=== PATIENT | male | born 1980 | race Caucasian/White ===

== ENCOUNTER → 2016-12-29 | Outpatient (CLI) | payer BC, OTHER ==
--- NOTE | 2016-12-29 11:54 | REP ---
Clinical: Acute/chronic cough. Technique: PA and lateral. Comparison: None. Findings: Mediastinum and cardiac silhouette are grossly within normal limits. Bronchitis cannot be excluded. No focal consolidation, effusion, or pneumothorax. Skeletal structures are intact. Impression: Coarsened markings are nonspecific but cannot exclude bronchitis. No focal consolidation. Signed by Saud Gutiérrez MD 12/29/2016 11:45 A
== END ==
LOC: M WUC 11:29
PROVIDERS: ATTEND Physician Assistant
DX: R05 Cough (principal)

== ENCOUNTER 2020-02-13 09:55 | Emergency (ER) | payer BC, OTHER ==
[~2020-02-13] VITALS: Ht 180.3 cm; Wt 119.0 kg
[2020-02-13] MEDS ORDERED: LEVO2TA (10:31)
[2020-02-13] MEDS ORDERED: MELO15TA28 (10:31)
[2020-02-13 11:06] LABS: BASO % 0.6 % (0.0-1.0); EOS # 0.1 10^3/uL (0.0-0.5); EOS % 1.8 % (0.0-3.0); HEMOGLOBIN 14.1 g/dl (13.5-17.5); LYMPH # 1.6 10^3/uL (1.5-5.0); MEAN CORPUSCULAR HEMOGLOBIN 26.7 pg (27.0-33.0); MEAN CORPUSCULAR VOLUME 83.3 fl (80.0-96.0); MONO # 0.4 10^3/uL (0.0-0.8); MONO % 6.3 % (0.0-5.0); NEUTROPHILS # 4.4 10^3/uL (1.5-8.5); NEUTROPHILS % 66.7 % (36.0-66.0); PLATELET COUNT, AUTOMATED 245 10^3/uL (150-450); RED BLOOD COUNT 5.28 10^6/uL (4.30-6.10); WHITE BLOOD COUNT 6.6 10^3/uL (4.0-10.0)
--- NOTE | 2020-02-13 11:13 | REP ---
INDICATION: CHEST PAIN COMPARISON: 12/29/2016 TECHNIQUE: Portable AP view of the chest FINDINGS: The mediastinum and cardiac silhouette are stable and within normal limits for portable technique. The lung perkins are clear without acute consolidation, effusion, or pneumothorax. Skeletal structures are intact. IMPRESSION: No acute cardiopulmonary process appreciated. <Electronically signed by Saud Gutiérrez > 02/13/20 [id number]
[2020-02-13] MEDS ORDERED: ISOVUE-370 76% 100ML VIAL As Ordered ONE (12:17)
--- NOTE | 2020-02-13 12:51 | REP ---
INDICATION: r/o PE. COMPARISON: None. TECHNIQUE: Contrast dose: 75 ML of Isovue [address] technique: Helical scanning is acquired and overlapping 1.5 mm and contiguous 3 mm axial images are reformatted. In addition, maximum intensity projection and multiplanar re-formation images are generated in sagittal and coronal imaging projections. FINDINGS: There is good opacification in the pulmonary arterial tree. There is no evidence of vessel cut off or filling defect to suggest pulmonary embolus. Homogeneous opacity is seen in the thoracic aorta. There is no evidence of aneurysm or dissection. Lung window settings demonstrate 2 there are 2 or 3 scattered granulomatous calcifications. There is a 3 mm pleural based nodule in the left lower lobe in the lateral pleural angle which is not calcified. No other significant pulmonary nodule is seen. No hilar or mediastinal mass or adenopathy is observed. In the upper abdomen, there is diffuse fatty infiltration of the liver. Normal adrenal glands are seen. The visualized upper abdominal structures are otherwise unremarkable. IMPRESSION: No CT evidence of pulmonary embolus. Noncalcified 3 mm pleural based pulmonary nodule in the left lower lobe with scattered granulomatous calcifications. If the patient is considered at high risk for pulmonary malignancy, follow-up chest CT in 1 year could be considered. <Electronically signed by Chip Reeves > 02/13/20 [id number]
[2020-02-13 15:00] VITALS: BP 143/91
--- NOTE | 2020-02-14 06:34 | ECGEPIP ---
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
--- NOTE | 2020-02-14 06:45 | ECGEPIP ---
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
--- NOTE | 2020-02-14 07:35 | ED PDOC ---
Post-Departure Follow-Up radiology report faxed Diego Howe Sarah MD Feb 14, 2020 07:35
== END 2020-02-13 15:18 | disposition home or self-care (01) ==
LOC: M ED 09:55
DX: R07.89 Other chest pain (principal); E07.9 Disorder of thyroid, unspecified; Z79.890 Hormone replacement therapy
CPT/HCPCS: 36415; 71045; 71275; 80047; 84484; 85025; 93005; 93041; 94760; 99285; Q9967

== ENCOUNTER → 2022-02-01 | Outpatient (REF) | payer BC, OTHER ==
[~2022-02-01] MED LIST: LEVO2TA; MELO15TA28
== END ==
LOC: M WUC 18:45
PROVIDERS: ATTEND Student in an Organized Health Care Education/Training Program
DX: J06.9 Acute upper respiratory infection, unspecified (principal)

== ENCOUNTER 2024-04-19 18:56 | Emergency (ER) | payer OTHER, BC ==
[~2024-04-19] VITALS: Ht 180.3 cm; Wt 125.2 kg
[2024-04-19 22:25] LABS: HEMATOCRIT 44.6 % (42.0-52.0); HEMOGLOBIN 14.7 g/dl (13.5-17.5); MEAN CORPUSCULAR HEMOGLOBIN 27.5 pg (27.0-33.0); MEAN CORPUSCULAR VOLUME 83.5 fl (80.0-96.0); PLATELET COUNT, AUTOMATED 296 10^3/uL (150-450); RED BLOOD COUNT 5.34 10^6/uL (4.30-6.10); WHITE BLOOD COUNT 10.5 10^3/uL (4.0-10.0)
[2024-04-19 22:48] LABS: ETHYL ALCOHOL (ETHANOL) < 0.003 % (0.000-0.010)
[2024-04-19 22:49] LABS: ALBUMIN 3.8 G/DL (3.2-5.2); ALKALINE PHOSPHATASE 86 U/L (40-129); ALT/SGPT 118 U/L (7.0-40); AST/SGOT 33 U/L (<34); BILIRUBIN,DIRECT 0.2 MG/DL (<0.4); BILIRUBIN,TOTAL 0.6 MG/DL (0.3-1.2); BLOOD UREA NITROGEN 18 MG/DL (9-23); CALCIUM LEVEL 9.3 MG/DL (8.5-10.1); CARBON DIOXIDE LEVEL 28 MMOL/L (20-31); CHLORIDE LEVEL 107 MMOL/L (98-107); CREATININE FOR GFR 1.12 MG/DL (0.70-1.30); GLOMERULAR FILTRATION RATE > 60.0 (>60); GLUCOSE, FASTING 98 MG/DL (60-100); POTASSIUM SERUM 4.3 MMOL/L (3.5-5.1); SALICYLATE LEVEL < 3.0 MG/DL (<30); SODIUM LEVEL 142 MMOL/L (136-145); TOTAL PROTEIN 7.3 G/DL (5.7-8.2)
[2024-04-19 22:51] LABS: THYROID STIMULATING HORMONE 6.811 uIU/ML (0.55-4.78)
[2024-04-20 01:00] VITALS: TEMP 97.4
[2024-04-20 03:03] VITALS: BP 139/89; O2SAT 97
[2024-04-20 03:13] LABS: KETONE, URINE AUTO RFX NEGATIVE (NEGATIVE); LEUKOCYTE ESTERASE UR AUTO RFX NEGATIVE (NEGATIVE); MUCUS, URINE RFX SMALL (NEGATIVE); NITRITE, URINE AUTO RFX NEGATIVE (NEGATIVE); RBC, URINE AUTO RFX 10 /HPF (0-3); SQUAM EPITHELIAL CELL UR AURFX 0 /HPF (0-6); WBC, URINE AUTO RFX 2 /HPF (0-3)
[2024-04-20 03:18] LABS: AMPHETAMINES LEVEL URINE NEGATIVE (NEGATIVE); BARBITURATES URINE NEGATIVE (NEGATIVE); BENZODIAZEPINES URINE NEGATIVE (NEGATIVE); COCAINE METABOLITE URINE NEGATIVE (NEGATIVE); METHADONE URINE NEGATIVE (NEGATIVE); OPIATES URINE NEGATIVE (NEGATIVE)
[2024-04-20 03:19] LABS: CANNABINOIDS URINE NEGATIVE (NEGATIVE); PHENCYCLIDINE URINE NEGATIVE (NEGATIVE)
[2024-04-20] MEDS ORDERED: HYDR-3363 PO (06:32)
== END 2024-04-20 06:51 | disposition home or self-care (01) ==
LOC: M ED 18:56
DX: F41.0 Panic disorder [episodic paroxysmal anxiety] (principal); E03.9 Hypothyroidism, unspecified; Z79.899 Other long term (current) drug therapy